=== PATIENT | male | born 1950 | race Caucasian/White ===

== ENCOUNTER → 2018-07-09 | Outpatient (CLI) | payer OTHER ==
--- NOTE | 2018-07-09 15:28 | EKG ---
[address] [address] ELECTROCARDIOGRAM REPORT Name: CHASE PEREZ Room #: [facility] Jones#: [id number] Admission: 07/09/18 Attend Phys: Breann Cheatham MD Discharge: Date of : 54 Report #: [id number] THIS REPORT FOR: //name// [facility] Test Date: 2018-07-09 Test Time: 12:53:53 Pat Name: CHASE PEREZ Department: Room: Gender: Certified Cytotechnologist: Cyrus PAR[place] : 1950 Requested By: Breann Cheatham Order Number: [id number] MD: Jeremias Paz Measurements Intervals [place] Rate: 50 P: 2 DC: 164 QRS: -31 QRSD: 86 T: -19 QT: 420 QTc: 383 Interpretive Statements Sinus rhythm Left axis deviation Nonspecific T abnormalities, inferior leads No previous ECG available for comparison Electronically Signed On 07-09-2018 15:28:00 GAS ENGINE MECHANIC by Jeremias Paz [email or web address] <ELECTRONICALLY SIGNED> By: Jeremias Paz MD 07/09/18 1528 1253 [id number] Jeremias Paz MD /JM
== END ==
LOC: EDBD 12:27 → CV 12:27
DX: Z01.818 Encounter for other preprocedural examination (principal)